=== PATIENT | female | born 1990 | race Hispanic/Latino ===

== ENCOUNTER 2019-08-19 14:58 | Inpatient (IN) | payer OTHER, SELFPAY ==
[2019-08-19] MEDS ORDERED: Lidocaine 1% (PF) 30 ML VIAL SC PRN (15:02)
[2019-08-19] MEDS ORDERED: Promethazine HCl 25 MG/ML VIAL IM PRN (15:02)
[2019-08-19] MEDS ORDERED: hydrALAZINE 20 MG/ML VIAL SLOW IVP PRN ×2 (15:02→19:20)
[2019-08-19] MEDS ORDERED: Ondansetron PF 4 MG/2 ML Vial IVP PRN ×2 (15:02→19:20)
[2019-08-19] MEDS ORDERED: Lactated Ringer's 1,000 ML IV SCH (15:15)
--- NOTE | 2019-08-19 15:15 | PDOC.FPROB ---
FMR OB H&P: HPI - History of Present Illness Chief Complaint: contractions History of Present Illness: 28yo @ 40.2 by LMP c/w 7.3wk sono presents for contractions. States onset last night, initially spaced out, infrequent and not very intense. Throughout the night and today have increased in intensity and frequency, now every 4-5min. Passed a mucous plug earlier in the day with light spotting. No LOF. No fever/chills, cough/congestion, n/v, diarrhea/constipation, recent travel, known sick contacts. FOB at beside and also negative for COVID-19 ROS or risk factors. Endorses good movement. Primary Care Physician: TAY Manuel FMR OB H&P: Current - Care : 3 Para: 2001 Gestational age: 40.2 Due date: 08/17/19 Dating Criteria: LMP/7.3wk sono - OB Labs Blood type: O RH: positive Antibody Screen: negative HIV: negative RPR: negative HepBsAg: negative Rubella: immune Quad screen: negative Gonorrhea: negative Chlamydia: positive (initial OB labs, FRANCISCO negative) Pap Smear: NILM 1 hour gtt: 124 H&H: 12.1 FMR OB H&P: History - Past Medical History PMH: none - OB History OB History: x2, no complications. 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 denies: dysuria FMR OB H&P: Vital Signs - Maternal Vital signs: BP 143/75, HR 68, RR16, T 98.8 - Heart Tones Baseline: 150 Variability: moderate Acceleration: present Deceleration: absent Category: category 1 [place] contractions every: 4-5 per mom, not showing on monitor FMR OB H&P: Physical Exam - Physical Exam General: NAD, awake, alert and oriented HEENT: MMM Neck: supple Heart: RRR, normal S1/S2, no murmurs/rubs/gallops, no edema General: CTAB, no respiratory distress, good air movement, no wheezing Abdomen: soft, gravid, bowel sound present Neurological: no focal deficit - Pelvic Exam SVE: 9/100/0 FMR OB H&P: A/P - Problem List (1) Third trimester Current Visit: Yes Status: Acute Code(s): Z34.93 - ENCNTR FOR SUPRVSN OF NORMAL PREG, UNSP, THIRD TRIMESTER Disposition: 28yo @ 40.2 by LMP c/w 7.3wk sono presents for contractions, admitted for active labor #SIUP, active labor - 40.2 by LMP c/w 7.3wk sono - SVE 9/100/0 at presentation - GBS negative - No bag on initial check, cephalic presentation - does not desire epidural - admit to L&D for expectant management in active labor #h/o Chalmydia during , FRANCISCO negative - Positive early in , FRANCISCO negative x2 #R breast mass during - appeared to be fibroadenmoa - will need repeat sono in Jacqui or September #Anemia of - Admit H/H, monitor #Hx HTn during - on ASA, monitor BPs PCP: TAY Osman IVF: LR @125cc/hr Diet: NPO, ice chips VTE: None Discussion: Date/Time: 08/19/19 1513 This H&P was discussed with Dr. Chambers and Dr. Cerrato who agree with the above documentation and plan. Addendum - Attending - Attending Attestation Date/Time: 08/19/19 1604 I personally evaluated the patient and discussed the management with Dr. López I agree with the History, Examination, Assessment and Plan documented above with any addition or exceptions noted below. GBS neg. expectant management. CT pos at IOB but negative x2 after.
[2019-08-19 15:21] VITALS: BMI 21.1
[2019-08-19 16:04] LABS: Hemoglobin 12.3 g/dL (12.0-16.0); Mean Corpuscular HGB CONC 34.3 g/dL (32.0-36.0); Mean Corpuscular Hemoglobin 28.1 pg (27.0-31.0); Mean Platelet Volume 9.3 fL (7.4-10.4); Platelet Count 302 thou/uL (130-400); RBC Distribution Width 14.3 % (11.5-14.5); Red Blood Cell (RBC) Count 4.37 mill/uL (4.20-5.40); White Blood Cell (WBC) Count 10.3 thou/uL (4.8-10.8)
[2019-08-19 16:43] LABS: HBSAg Index 0.25 S/CO (0-0.99); Hep B Surf Ag Non-Reactive S/CO (NonReactive); Syphilis Antibody Nonreactive (Nonreactive); Syphilis Antibody Index 0.05 S/CO (<1.00 Non-Reactive)
--- NOTE | 2019-08-19 16:43 | PDOC.OPDEL ---
OB Operative/Delivery Note Delivery Dr/Surgeon: Raghav Parekh/Blossom Pre-Delivery Diagnosis: active labor, ruptured membrane Procedure/Post Delivery Dx: spontaneous vaginal delivery Weeks gestation: 40 (40.2) Anesthesia: none - Findings A Sex: female - 1 min: 9 - 5 min: 9 - Additional Findings/Plan Placenta delivered: spontaneous Repaired Obstetrical Laceration: 1st degree (hemostatic, good approximately, no repair required) Estimated blood loss: 75cc Compilations/Other Findings: Delivering Physician: Raghav Parekh Attending: Blossom Procedure: Spontaneous Vaginal Delivery Anesthesia: None QBL: 75 ml Pre-op Diagnosis: 1. Term intrauterine in labor 2. Hx of chlamydia with FRANCISCO negative Post-op Diagnosis: 1. Term intrauterine , delivered 2. same as above Indications: A 28y/o female presents in active labor Delivery Note: This is 28yo F @ 40.2wks who delivered a viable F at 1616. Following an uneventful antepartum course, a vigorous female was delivered over an intact perineum in the OA position. Anterior Shoulder and then remainder of the body delivered. No nuchal cord. The head was held down and mouth and nares were bulb suctioned. Short cord and thus cord was clamped and cut and cord blood collected. Placenta delivered intact in the [place] presentation with a 3 vessel cord noted. Fundal massage was performed and the fundus was firm. The cervix and vagina were inspected. A 1st degree lac was noted. Hemostatic with good approximation, did not require any repair. Infant went to nursery in good condition for routine care. Apgars were 9/9 at 1 & 5 minutes, respectively. Patient tolerated delivery well and went to after routine recovery/care. Post delivery plan: routine recovery Addendum - Attending - Attending Attestation Date/Time: 08/20/19 7647 I personally evaluated the patient and discussed the management with Dr. López I was present for the entire delivery.
[2019-08-19] MEDS: NS / Oxytocin 40 units/1000ml 1,000 ML IV PRN ×2 (16:58→16:59)
[2019-08-19] MEDS ORDERED: Bisacodyl 10 MG SUPP PR PRN (19:20)
[2019-08-19] MEDS ORDERED: Lanolin Ointment 7 GM TUBE TOP PRN (19:20)
[2019-08-19] MEDS ORDERED: NS / Oxytocin 40 units/1000ml 1,000 ML IV SCH (19:20)
[2019-08-19] MEDS ORDERED: Milk Of Magnesia 30 ML UDCUP PO PRN ×2 (19:20)
[2019-08-19] MEDS: Ibuprofen 800 MG TAB PO SCH (20:15)
[2019-08-19] MEDS: Docusate Calcium (SURFAK) 240 MG CAP PO SCH (21:25)
[2019-08-19] MEDS: Docusate 100 MG CAP PO SCH (22:11)
[2019-08-20] MEDS: Ibuprofen 800 MG TAB PO SCH ×3 (05:40→13:55)
--- NOTE | 2019-08-20 06:49 | PDOC.PP ---
Post Progress Note Post Day #: 1 Subjective: Doing well this morning. Ambulating. Voiding without difficulty, passing flatus. Tolerating PO without n/v. No fever/chills. Pain well-controlled. Lochia minimal. Eager for possible discharge today. PO intake tolerated: yes Flatus: yes Ambulation: yes Vital Signs (12 hours) Temp Pulse Resp BP Pulse Ox 08/20/19 05:35 97.6 F 67 18 125/66 99 08/19/19 23:56 98.0 F 63 18 140/63 97 08/19/19 20:41 98.0 F 69 18 130/63 99 Weight Weight 57.606 kg - Physical Examination General: NAD (good spirits) Cardiovascular: RRR Respiratory: clear to auscultation bilaterally, non-labored breathing Abdominal: + bowel sounds, lochia, no distention, appropriately TTP Fundus firm & at: umbilicus Extremities: negative homans (B) (no edema) Neurological: no gross focal deficits Psychiatric: A&Ox3, normal affect Result Diagrams: 08/19/19 15:00 Additional Labs: Post Labs Blood Type O POSITIVE 08/19/19 18:24 Hep Bs Antigen Non-Reactive S/CO (NonReactive) 08/19/19 15:00 (1) Third trimester Code(s): Z34.93 - ENCNTR FOR SUPRVSN OF NORMAL PREG, UNSP, THIRD TRIMESTER Status: Acute - Assessment/Plan 28yo -->3 @ 40.2 by LMP c/w 7.3wk sono presented for contractions, admitted for active labor, s/p PPD#1 #S/p , PPD#1 - 40.2 by LMP c/w 7.3wk sono - GBS negative - s/p @ 1616 on 08/18, QBL 75cc - small 1st degree lac, hemostatic, good approximately, did not require repair - ambulation, voiding, tolerating PO, eager for possible discharge today pending clinical course and baby's course - routine PP care #h/o Chalmydia during , FRANCISCO negative - Positive early in , FRANCISCO negative x2 #R breast mass during - appeared to be fibroadenmoa - will need repeat sono in August or September #Anemia of - Hb 12.5 at admit, QBL 75cc #Hx HTn during - on ASA, monitor BPs, WNL PCP: TAY Osman IVF: SL Diet: Regular VTE: None Dispo: S/P , PPD#1, doing well, routine PP care. Anticipate discharge today vs tomorrow. Addendum - Attending - Attending Attestation Date/Time: 08/20/19 1018 I personally evaluated the patient and discussed the management with Dr. López I agree with the History, Examination, Assessment and Plan documented above with any addition or exceptions noted below. Doing well. d/c pending baby biliruben
[2019-08-20] MEDS: Ferrous Sulfate 325 MG TAB PO SCH ×2 (08:47→15:07)
[2019-08-20] MEDS ORDERED: Prenatal Vitamin 1 TAB PO SCH (09:00)
[2019-08-20] MEDS ORDERED: Adacel (T-DAP) 0.5 ML SYRINGE IM ONE (09:00)
[2019-08-20] MEDS ORDERED: Polyethylene Glycol 3350 17 GM Packet PO SCH (09:00)
[2019-08-20] MEDS: Docusate Calcium (SURFAK) 240 MG CAP PO SCH (09:33)
[2019-08-20] MEDS: Docusate 100 MG CAP PO SCH (09:33)
[2019-08-20 17:12] VITALS: BP 102/60; TEMP 98.1
== END 2019-08-20 18:36 | disposition home or self-care (01) | DRG 807 ==
LOC: L&D 14:58 → 3SW 20:45
PROVIDERS: ADMIT Family Medicine; ATTEND Family Medicine
PROC: 10E0XZZ Delivery of Products of Conception, External Approach (ICD-10-PCS; principal; 2019-08-19)
PROC: 10907ZC Drainage of Amniotic Fluid, Therapeutic from Products of Conception, Via Natural or Artificial Opening (ICD-10-PCS; 2019-08-19)
DX: O48.0 Post-term pregnancy (principal); Z37.0 Single live birth; Z3A.40 40 weeks gestation of pregnancy; O13.4 Gestational [pregnancy-induced] hypertension without significant proteinuria, complicating childbirth; O99.02 Anemia complicating childbirth; D64.9 Anemia, unspecified; D24.1 Benign neoplasm of right breast; O75.89 Other specified complications of labor and delivery; O70.0 First degree perineal laceration during delivery
CPT/HCPCS: 36415; 76815; 85027; 86780; 86850; 86900; 86901; 87340; 99285